=== PATIENT | male | born 1990 | race Caucasian/White ===

== ENCOUNTER 2024-10-10 08:13 | Emergency (ER) | payer SELFPAY ==
[2024-10-10 08:20] VITALS: BP 170/88; PULSE 78; RESP 20; TEMP 36.6; O2SAT 100
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
--- OUTSIDE RECORDS SUMMARY | 2024-10-10 08:27 | XMS_ITS | Data Portability ---
Author Organization [place] [facility] Address [address] [place] [address] Assessment Encounter Date Assessment Date Assessment LastModified by Organization Details LastModified Time 03/29/2018 03/29/2018 Patient fell at work and hit his back of the head on the ground, patient did not lose consciousness but has a severe headache and nausea, he has a 3-5 cm laceration on the posterior side of skull which has arterial bleeding and area is very tender to palpate. We will transfer him to Er for further workup. We applied pressure dressing and gave him a toradol injection for pain control. We spent 45 minutes to clean and dress the wound. [email or web address] Not available 03/29/2018 12:33:47 Plan of Treatment Reminders Order Date Submit Date Provider Last Modified By Organization Details Last Modified Time Details Appointments None recorded. Lab None recorded. Referral None recorded. Procedures therapeutic , prophylacti c, or diagnostic injection; subcutaneou s/intramusc ular (PROC) 2017 018 [email or web address] Not available 8 07:35:30 Surgeries None recorded. Imaging None recorded. Medication Orders ketorolac 60 mg/2 mL intramuscul ar solution 2017 018 Not available 8 14:10:32 Patient TargetsNo targets recorded. Patient Instructions Encounter Date Encounter Id Patient Instructions Last Modified By Organization Details Last Modified Time 03/29/2018 [id number] Discharge Instructions - Wound Care - Wash the wound gently with soap and warm water once daily. Otherwise keep wound clean, dry and covered with a dressing. - Do not immerse in water, and do not use alcohol or peroxide to clean. Do not use iodine or mercurochrome. - Elevate to decrease pain and improve healing. - Minimize use of affected body part. - Return here or see your doctor for any sign of infection, including redness, swelling, pus or increased pain. - Return for wound check in 2 or 3 days. - Return to have stiches removed in . - If you received a tetanus shot the site may become sore and you may develop a low-grade fever. Take Tylenol if you have fever or pain. Return for a more severe reaction. Return to see your doctor in days for a recheck. Return of see your doctor if not improving in days. [email or web address] Not available 03/29/2018 12:06:34 Reason for Referral None Reported. Problems No Known Problems Procedures Surgical History Date Name Laterality Status Provider Name and Address Organization Details Recorded Time 8 Laceration Repair completed Fabian Louis MD [address] [place] [address], [phone], [facility] 03/29/2018 12:06:35 Imaging Results None recorded. Procedure Notes None recorded. Medical Equipment None Reported. Allergies No known drug allergies Medications Name Sig Start Date Stop Date Status Note LastModified by Organization Details LastModified Time ketorolac 60 mg/2 mL intramuscula r solution Inject 1 mL every 6 hours by intramuscul ar route. 2017 active Not Available Not Available Not Avai lable Vitals Date Recorded Body height Body mass index (BMI) Body weight Heart rate Body temperature Systolic blood pressure Diastolic blood pressure Provider Name and Address Organization Details Last Updated DateTime 8 177.8 cm 35.9 kg/m2 944401. 09 g 90 /min 98.3 [degF] 143 mm[Hg] 74 mm[Hg] Tracy Ward [facility] 8 13:31:03 Social History None recorded. Functional Status None recorded. Mental Status None recorded. Family History Nothing Reported. Medical History Condition Response Coronary Artery Disease N Gout N Hyperthyroidism N Hypothyroidism N Depression N COPD N Anxiety Disorder N Diabetes N Arthritis N Cancer N Urinary Tract Infection N Diverticulitis N Stroke N Asthma N Cellulitis N Reflux/GERD N High Cholesterol N Heart Disease N Pulmonary Embolism N Fibromyalgia N Abscess N Hypertension N Osteoporosis N Kidney Disease N Past Encounters Encounter ID Performer Location Encounter Start Date Encounter Closed Date Diagnosis/Indication Diagnosis SNOMED-CT Code Diagnosis ICD10 Code Diagnosis Note [id number] Fabian Louis MD [facility] [address] [place] [address] 03/29/2018 12:02:56 03/30/2018 07:14:14 Injury of head 33196625 S09.90XA Laceration of head [id number] S01.91XA Health Concerns Section Related Observation LastModified by Organization Detai ls LastModified Time None Recorded Concern Status LastModified by Organization Details LastModified Time None Recorded Advance Directives Directive None Recorded Payers Encounter Date Sequence Insurance Name Policy Number Policy Pulliam Covered Member ID Pulliam Member ID Guarantor Name 03/29/2018 1 *SELF PAY* Jah Leonardo([facility]) Notes Date Note Type Note Provider Name and Address Organization Details Recorded Time 03/29/2018 text/html Head InjuryRepor tiffanie bypatient.source of patient informationpatient Location:posterior Onset/Timin days ago Quality:sharp; throbbing Context:work injury Associated Symptoms:no loss of consciousness; no numbness/tingling; no foggy thinking; no loss of taste/smell; no poor concentration; no recent depression/ melancholy; able to read fine print; no loss of coordination since injury; not seeing double; no vomiting; no spinning dizziness (vertigo); normal balance; no sensitivity to noise; no ringing in the ears; no fatigue/drowsiness; no irratability; no post traumatic amnesia; no retrograde amnesia; no post-traumatic seizures;headache;light headed;nausea;sensitivi ty to light Risk Factors for Prolonged Recovery:no prior head injury/concussion; no personal history of migraines or headaches; no family history of migraines or headaches; no history of ADHD or other learning disability; no history of anxiety; no history of depression; no history of mood disorders; no history of sleep disorderWound/Laceratio nReported bypatient.Source of Patient Informationpatient Location:Wound # 1 head Quality:Wound 1 size in cm Severity:moderate Duration:2 hours; days Onset/Timing:date of initial injury: 03/29/18 Context:trauma Associated [place] [address] [place] [address], [phone], [facility] 03/29/2018 13:55:47
--- OUTSIDE RECORDS SUMMARY | 2024-10-10 08:27 | XMS_ITS | Clinical Summary ---
Author Organization [facility] Address [address] [place] [address] Phone Care Team Providers Care Hospital Educator Name Role Phone Provider, None Primary Care Provider Unavailabl e Allergies No known active allergies Medications No known medications Social History Tobacco Use Types Packs/Day Years Used Date Smoking Tobacco: Every Day Cigars Tobacco Cessation:Ready to Q uit: No; Counseling Given: No Alcohol Use Standard Drinks/Week Comments Yes 0 (1 standard drink = 0.6 oz pur e alcohol) Sex and Gender Information Value Date Recorded Sex Assigned at Not on file Legal Sex Male 7:07 PM CDT Gender Identity Not on file Sexual Orientation Not on file Last Filed Vital Signs Vital Sign Reading Time Taken Comments Blood Pressure 143/79 09/04/2018 6:59 PM CDT Pulse 91 09/04/2018 6:59 PM CDT Temperature 35.9 C (96.7 F) 09/04/2018 5:51 PM CDT Respiratory Rate 16 09/04/2018 6:59 PM CDT Oxygen Saturation 98% 09/04/2018 6:59 PM CDT Inhaled Oxygen Concentration - - Weight 120.2 kg (265 lb) 09/04/2018 5:51 PM CDT Height 177.8 cm (5' 10) 09/04/2018 5:51 PM CDT Body Mass Index 38.02 09/04/2018 5:51 PM CDT Plan of Treatment Not on file Care Teams Hospital Educator Relationship Specialty Start Date End Date Provider, None [place] PCP - General 09/04/18
--- NOTE | 2024-10-10 08:41 | ED_ITS ---
HPI - Dental/Oral General Chief complaint: Dental/Oral Stated complaint: Swollen/Painful Gingiva, Broken Tooth Time Seen by Provider: 10/10/24 08:33 Mode of arrival: ambulatory Limitations: no limitations History of Present Illness HPI Narrative: 34-year-old male presents with concern for right upper dental to. He reports he has a broken tooth in that area and over the weekend he is eating some chips and it began to hurt become swollen. He denies fever or trouble swallowing. He has a dentist appointment next week MD Complaint: tooth pain Related Data Allergies Allergy/AdvReac Type Severity Reaction Status Date / Time No Known Allergies Allergy Unverified 05/28/17 19:49 Review of Systems Review of Systems: CONSTITUTIONAL: Denies malaise, chills, sweats, or fever. EYES: Denies visual changes ENT: Denies rhinorrhea, congestion, sinus pain, otalgia or sore throat. Reports stack right upper dental pain CARDIOVASCULAR: Denies chest pain, palpitations RESPIRATORY: Denies cough or dyspnea. SKIN: Denies rash or itching. MUSCULOSKELETAL: Denies myalgia. NEUROLOGIC: Denies numbness, weakness, or headache. All systems reviewed & are unremarkable except as noted in HPI and below PMFSH Comments At time of signature, agree with nursing past medical, surgical, social and family history. There is no relevant family history pertinent to the presenting complaint Exam Narrative: GENERAL: Well-appearing, well-nourished, and in no acute distress. HEAD: Normocephalic, atraumatic. EYES: PERRLA, sclera clear ENT: Nares clear, turbinates pink, no rhinorrhea or epistaxis. Mucous membranes moist. TM pearly hayes with sharp light reflex bilaterally; no tragal tenderness. Oropharynx without erythema or lesions. Tonsils not enlarged and without exudate. Broken teeth, caries. No facial swelling noted NECK: Supple. No lymphadenopathy. CHEST: No respiratory distress. Speaks in full sentences. HEART: Regular rate and rhythm. SKIN: Warm, dry, no visible rash. NEURO: Alert and oriented x3. PSYCH: Normal mood and affect Course Course Emergency Course: Patient is aware of diagnosis, understands and agrees to treatment plan. Anticipatory guidance given. Patient agrees to follow-up as directed and is aware of reasons to seek care at the emergency department. Portions of this record may have been created with voice recognition software Level of Care: Express Care Visit Vital Signs Vital signs: Vital Signs Temperature 97.8 F 10/10/24 08:20 Pulse Rate 78 10/10/24 08:20 Respiratory Rate 20 10/10/24 08:20 Blood Pressure 170/88 H 10/10/24 08:20 Pulse Oximetry 100 10/10/24 08:20 Oxygen Delivery Room Air 10/10/24 08:20 Temperature 97.8 F 10/10/24 08:20 Pulse Rate 78 10/10/24 08:20 Respiratory Rate 20 10/10/24 08:20 Blood Pressure 170/88 H 10/10/24 08:20 Pulse Oximetry 100 10/10/24 08:20 Oxygen Delivery Room Air 10/10/24 08:20 Reviewed. MDM - Dental/Oral MDM Narrative Medical decision making narrative: I evaluated this in the [facility]. History is obtained from patient who is an independent historian and physical exam was performed.? Available medical records were reviewed. ? Exam findings and relevant testing show no acute concerns or changes; patient is non-toxic appearing and is in no distress. Patients pain and complaint coupled with physical findings are consistant with dentalgia. There are no focal signs of space occupying lesions that are compromising to the airway; no dysphagia, odynophagia, dysphonia, or dyspnea. No uvular deviation or soft palate edema. Patient is non-toxic appearing. The floor of the mouth is soft with no signs of Luisito's Angina; no induration below mandible, no neck pain. Patient is without trismus or drooling and able to swallow secretions. Patient is felt appropriate for discharge home with dental follow up. ? Differential diagnosis and treatment plan were discussed with the patient. Ulises jack agrees with discussion and after shared medical decision making agrees with plan of care. All questions were answered to the patient's satisfaction. Patient is appropriate for outpatient treatment and follow-up. Differential Diagnosis Differential diagnosis: Likely gingival abscess, dental caries, toothache, dental abscess, fracture of tooth and aphthous ulcer Critical Care Time Critical Care Time Critical Care Time: No Discharge Plan Discharge Clinical Impression: Toothache Patient Disposition: Home Condition: Stable Instructions: Antibiotic Form, Toothache (ED) Additional Instructions: Take antibiotic as directed Avoid temperature extremes May apply heat or ice to the face Gentle brushing and flossing Take 2 extra strength Tylenol, 4 ibuprofen, 80 mg of caffeine at same time. You can do this every 6 hours. Do not do this for more than 2 - 3 days. You can substitute 25 mg Benadryl at nighttime for caffeine to help you sleep. Do this for no more than 3 days. Follow-up with the dentist as soon as possible - see the list provided Patient Language: Greenlandic Prescriptions: New amoxicillin-pot clavulanate 875-125 mg tablet 1 tablet PO Q12H 10 Days Qty: 20 0RF Follow-up/Referrals: Antonio,MD Aldo [Primary Care Provider] - Time of Disposition: 08:43
== END 2024-10-10 08:47 | disposition home or self-care (01) ==
PROVIDERS: Emergency Provider Nurse Practitioner; PCP Hospitalist
DX: K08.89 Other specified disorders of teeth and supporting structures (principal); I10 Essential (primary) hypertension
CPT/HCPCS: 99213; G0463

== ENCOUNTER 2025-05-02 12:29 | Emergency (ER) | payer MEDICARE, SELFPAY ==
--- NOTE | 2025-05-02 12:31 | ED_ITS ---
HPI - URI/Sore Throat General Chief Complaint: Upper Respiratory Infection Stated Complaint: throat/tight chest/cough Time Seen by Provider: 05/02/25 12:41 Source: patient, RN notes reviewed and old records reviewed Mode of arrival: ambulatory Limitations: no limitations History of Present Illness HPI Narrative: 35-year-old male presents to the [facility] with complaints of cough, sore throat. Reports chest tightness when coughing. Has felt feverish. Has used albuterol and taken NyQuil with no relief Onset (ago): day(s) (4) Treatments prior to arrival: cold medicine Related Data Home Medications ?Medication ?Instructions ?Recorded ?Confirmed ?Last Taken ?Type lisinopril 20 mg tablet mg 05/02/25 Unknown History tramadol 100 mg tablet,extended mg PO 05/02/25 Unknow n History release 24 hr tramadol 50 mg tablet mg 05/02/25 Unknown History Allergies Allergy/AdvReac Type Severity Reaction Status Date / Time No Known Allergies Allergy Verified 05/02/25 12:39 Review of Systems Review of Systems: All systems reviewed & are unremarkable except as noted in HPI and below Constitutional: Constitutional: Reports no additional constitutional complaints ENT: Reports as per HPI and Reports sore throat Cardiovascular: Cardiovascular: Reports no additional cardiovascular complaints, Denies chest pain and Denies dyspnea Respiratory: Respiratory: Reports as per HPI, Denies chest congestion, Reports cough and Denies dyspnea Musculoskeletal: Musculoskeletal: Reports no additional musculoskeletal complaints Integumentary/Breasts: Skin/Breast: Reports system reviewed and no additional complaints, except as docu PMFSH Comments At the time of my signature, I reviewed and agree with the nursing past medical, surgical, social, and family history. There is no relevant family history pertinent to the patient complaint. Exam Const: General: cooperative, healthy appearing, comfortable, no acute distress, well developed, alert and well nourished Nutritional Appearance: well nourished Orientation/consciousness: patient oriented x3 Limitations: no limitations HENMT: Head: normal to inspection Ears: hearing grossly normal bilaterally, external ears normal, TM's normal bilaterally, EAC's normal, mastoids normal and no periauricular adenopathy Face and sinus: normal facial exam and face symmetric Mouth: Yes Normal oral and palatal mucosa present, Yes lip normal, Yes tongue normal and Yes moist mucous membranes Throat: posterior oropharynx normal, uvula midline and no uvular edema Eyes: General: appearance normal, both eyes and all related structures Alignment and Position: alignment normal Neck: Neck: normal visual inspection, full ROM, no lymphadenopathy and no meningeal signs Chest: Chest palpation & inspection: normal inspection of the chest Resp: Effort & Inspection: normal respiratory effort and able to speak in complete sentences Auscultation: clear to auscultation bilaterally, no crackles, no rales, no rhonchi and no wheezes Cardio: Rate: regular rate Skin: General skin exam: normal color and no rashes or lesions noted Neuro: General: patient oriented x3, gait normal, moves all extremities and no meningeal signs Cognition (Neuro): normal cognition Speech: normal speech Gait exam (Neuro): Normal gait present Extrem: General: normal to inspection, full ROM, capillary refill normal and normal gait Psych: Appearance: grossly normal and well kempt Mental Status: mental status grossly normal Speech and movement: Normal speech and movement present and Clear speech present Affect: normal affect Attitude: cooperative Course Course Level of Care: Express Care Visit Vital Signs Vital signs: Vital Signs Temperature 99.7 F H 05/02/25 12:37 Pulse Rate 83 05/02/25 12:37 Respiratory Rate 20 05/02/25 12:37 Blood Pressure 164/95 H 05/02/25 12:37 Pulse Oximetry 99 05/02/25 12:37 Oxygen Delivery Room Air 05/02/25 12:37 Temperature 99.7 F H 05/02/25 12:37 Pulse Rate 83 05/02/25 12:37 Respiratory Rate 20 05/02/25 12:37 Blood Pressure 164/95 H 05/02/25 12:37 Pulse Oximetry 99 05/02/25 12:37 Oxygen Delivery Room Air 05/02/25 12:37 reviewed MDM MDM Narrative Medical decision making narrative: patient sitting in exam room. Patient is nontoxic, vitals stable. Patient presents 4 day history of URI symptoms. Flu and COVID negative, symptoms consistent with URI or viral symptoms. Patient is appropriate for outpatient treatment with close follow-up Discharge instructions reviewed with patient, as well as provided in writing per nursing staff. The instructions also include specific and strict return/GO TO THE ER as well as f/u information. All questions have been answered, and the patient deny any further questions with discharge and discharge plan. Some parts of this dictation were generated by voice recognition software and may contain typographical and/or grammatical inaccuracies. Differential Diagnosis Differential Diagnosis: Differential diagnostic considerations for upper respiratory infection include upper respiratory infection, croup, otitis media, sinusitis, viral infection, bronchitis, influenza, pharyngitis, strep, uvulitis.? Lab Data MDM Lab Attestation statement: I personally reviewed the patient's lab results. Labs: Lab Results 05/02/25 Range/Units 12:53 POC Influenza A Ag Negative (Negative) POC Influenza B Ag Negative (Negative) POC SARS CoV-2 Ag Negative (Negative) Reviewed Discharge Plan Discharge Clinical Impression: Upper respiratory infection Qualifiers: URI type: unspecified viral URI Qualified Code(s): J06.9 - Acute upper respiratory infection, unspecified Patient Disposition: Home Condition: Stable Instructions: Upper Respiratory Infection (ED) Additional Instructions: Your rapid COVID test were negative Your rapid flu test was negative Your symptoms are likely due to a viral illness, which is not treated with antibiotics. Typically viral infections last 7-10 days, can linger for couple of weeks. It is very important to treat your symptoms. Drink plenty of water, Gatorade, Pedialyte, ice pops or Jell-O. -Alternate Tylenol and Motrin per package directions for fever or pain. You can alternate every 4 hours -Antihistamine medication such as Zyrtec/Claritin during the day can help improve symptoms. -doing daily nasal irrigations can help relieve pressure your sinuses. Things like a Neti pot -Use Flonase twice a day for 5 days then daily to help reduce the inflammation and dry up your sinuses. -You can also use Mucinex. Be sure to drink plenty of water with this medication at least 8 ounces with every dose and it is important to drink 8 to 10 glasses of water per day. Water is a natural decongestant -Eat and drink things that are easy to swallow, like tea or soup, or popsicles. -Oral rinses such as: Salt water gargles and/or may use topical anesthetic (eg. Chloraseptic spray) or lozenges to relieve dryness or throat pain). -Frequent hand washing or hand geosciences professor is one of the best ways to prevent spread of infection. -Using a vaporizer or humidifier at night will also help thin secretions and help with coughing up phlegm. -Follow up with primary care provider in 7-10 days if condition is not improving - For new or worsening symptoms go directly to the nearest ER Patient Language: Luxembourgish Prescriptions: New benzonatate 100 mg capsule 100 mg PO TID PRN (Reason: cough) Qty: 15 0RF No Action lisinopril 20 mg tablet tramadol 50 mg tablet tramadol 100 mg tablet extended release 24 hr PO Follow-up/Referrals: Antonio,MD Aldo [Primary Care Provider, Unknown] - 2 Weeks Clinical Impression: Upper respiratory infection Stand Alone Forms: Work/School Release IP Time of Disposition: 12:55
[2025-05-02 12:37] VITALS: BP 164/95; PULSE 83; RESP 20; TEMP 37.6; O2SAT 99
--- OUTSIDE RECORDS SUMMARY | 2025-05-02 12:45 | XMS_ITS | Clinical Summary ---
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 Addis Jarvis TELEVISION OPERATOR LAB BLOOD ORDERABLES Fi nal Result [facility] ([place]) 1 [facility] Department [place] [address] * Hepatitis C antibody (11/27/2020 11:25 AM [...] 11:25 AM CDT 11/27/2020 3:45 PM CDT Aldo Alvarez MD LAB MICROBIOLOGY - [facility] L ORDERABLES Final Result Performing Organization Address City/State/[facility] Co de Phone Number [phone] [address] [place] [address] from Last 3 Months or Most Recently Relevant to Health Maintenance Insurance MEDICARE MEDICARE WORKERS COMPENSATION GENERIC Care Teams Vp Of Marketing Relationship Specialty Start Date End Date Aldo Alvarez MD [address] [place] [address] PCP - General Family Medicine 08/29/20
--- OUTSIDE RECORDS SUMMARY | 2025-05-02 12:45 | XMS_ITS | Clinical Summary ---
Author Organization [facility] Address [address] [place] [address] Phone Care Team Providers Care Size Stamper Name Role Phone Provider, None Primary Care [...] of Treatment Not on file Care Teams Size Stamper Relationship Specialty Start Date End Date Provider, None [place] PCP - General 09/04/18
--- OUTSIDE RECORDS SUMMARY | 2025-05-02 12:45 | XMS_ITS | Encounter Summary ---
Author Organization [facility] Healthcare Address [address] [place] [address] Care Team Providers Care Inspector And Clerk Name Role Phone Aldo Alvarez MD Primary Care Provider [phone] Encounter Details Date Type Department Care Team (Late st Contact Info) Description 03/08/2025 Results Follow-Up [facility] Medical [facility] Primary Care at [address] [place] [address] Addis Jarvis, MARCELO [address] [facility] [address] [place] [address] Hemoglobin A1c, Thyroid Function [place], Lipid panel, Additional followed-up results: 8 Social History Tobacco Use Types Packs/Day Years [...] on file Legal 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
[2025-05-02 12:55] LABS: EDCOVIDSCREEN Negative (Negative); EDINFLUASCREEN Negative (Negative); EDINFLUBSCREEN Negative (Negative)
== END 2025-05-02 13:04 | disposition home or self-care (01) ==
PROVIDERS: Emergency Provider Nurse Practitioner; PCP Hospitalist
DX: J06.9 Acute upper respiratory infection, unspecified (principal); Z79.891 Long term (current) use of opiate analgesic; Z20.822 Contact with and (suspected) exposure to COVID-19
CPT/HCPCS: 87426; 87804; 99213; G0463